=== PATIENT | male | born 1970 | race African-American/Black ===

== ENCOUNTER 2022-11-10 23:07 | Emergency (ER) | payer OTHER ==
[~2022-11-10] VITALS: Ht 190.5 cm; Wt 136.1 kg
[2022-11-10 23:30] VITALS: BP 141/96
[2022-11-11 00:15] LABS: BILIRUBIN,URINE NEGATIVE (NEGATIVE); COLOR,URINE AMBER (YELLOW); LEUKOCYTE ESTERASE ,URINE 1+ (NEGATIVE); NITRITE, URINE NEGATIVE (NEGATIVE); PH,URINE 5.5 (5.0-8.0); PROTEIN,URINE NEGATIVE (NEGATIVE); UGLUCOSE NEGATIVE (NEGATIVE); UROBILINOGEN,URINE 0.2 EU/dL (0.2)
--- NOTE | 2022-11-11 00:15 | NUR ---
URINE SPECIMEN SENT TO LAB
[2022-11-11 00:23] LABS: BACTERIA,URINE Few /HPF (None Seen); RBC,URINE TOO NUMEROUS TO COUN /HPF (0-2); SQUAMOUS EPITHELIAL CELL,UR Few /HPF (None Seen)
[2022-11-11] MEDS ORDERED: CIPR500T5 PO (00:26)
[2022-11-11] MEDS ORDERED: CIPROFLOXACIN HCL 500 MG TABLET ONE (00:29)
[2022-11-11] MEDS: CIPROFLOXACIN HCL 500 MG TABLET PO ONE (00:33)
--- NOTE | 2022-11-11 00:34 | NUR ---
Patient discharged to home in stable condition. Written and verbal after care instructions given. Patient verbalizes understanding of instruction.
== END 2022-11-11 00:38 | disposition home or self-care (01) ==
LOC: ER 23:11
DX: N39.0 Urinary tract infection, site not specified (principal); Z79.899 Other long term (current) drug therapy
CPT/HCPCS: 81001; 87086-TC